=== PATIENT | female | born 1965 | race Caucasian/White ===

== ENCOUNTER 2017-02-08 22:33 | Emergency (ER) | payer BC ==
[~2017-02-08] VITALS: Ht 167.6 cm; Wt 100.5 kg
[2017-02-08 22:36] VITALS: Ht 167.6 cm; Wt 100.5 kg
[2017-02-09] MEDS ORDERED: ALBUTEROL 0.083% (NEB) 2.5 MG/3 ML AMP NEB STA (00:40)
[2017-02-09] MEDS ORDERED: IPRATROPIUM (NEB) 0.5 MG/2.5 ML AMP HHN ONE (01:00)
[2017-02-09 01:19] LABS: ADD SCAN DIFF NO
[2017-02-09 01:26] LABS: BASOPHILS % 0.4 % (0.0-2.0); EOSINOPHILS # 0.1 10^3/ul (0.0-0.5); EOSINOPHILS % 1.9 % (0.0-7.0); HEMATOCRIT 41.2 % (37.0-47.0); HEMOGLOBIN 13.6 g/dl (12.0-16.0); LYMPHOCYTES # 1.7 10^3/ul (0.8-2.9); LYMPHOCYTES % 24.4 % (15.0-51.0); MEAN CORPUSCULAR HEMOGLOBIN 31.1 pg (29.0-33.0); MEAN CORPUSCULAR VOLUME 94.1 fl (82.0-101.0); MEAN PLATELET VOLUME 9.2 fl (7.4-10.4); MONOCYTE # 0.6 10^3/ul (0.3-0.9); MONOCYTES % 8.6 % (0.0-11.0); NEUTROPHIL # 4.5 10^3/ul (1.6-7.5); NEUTROPHILS % 64.3 % (39.0-77.0); PLATELET COUNT 388 10^3/UL (140-415); RED BLOOD COUNT 4.38 10^6/ul (4.20-5.40); RED CELL DISTRIBUTION WIDTH 12.7 % (11.5-14.5)
[2017-02-09 01:39] LABS: CALCIUM 9.4 mg/dl (8.4-10.2); CREATININE 0.67 mg/dl (0.44-1.00); POTASSIUM 4.1 mmol/L (3.5-5.1)
[2017-02-09] MEDS ORDERED: predniSONE 20 MG TAB PO ONE (02:30)
--- NOTE | 2017-02-09 03:45 | RADRPT ---
PROCEDURE: XR Chest. CLINICAL INDICATION: Pneumonia TECHNIQUE: PA and Lateral views of the chest were obtained. COMPARISON: None. FINDINGS: The cardiomediastinal silhouette is within normal limits. There is minimal prominence of the lung in terstitium which could represent minimal chronic changes. Minimal interstitial infiltrates in lower lungs are possible. No focal lung consolidation is seen. No signs of pleural fluid or pneumothorax are seen. There is moderate to marked dextroscoliosis of the lower thoracic spine. Spinal rods exten ding from the level of T1 superiorly to the lumbar spine. IMPRESSION: There is minimal prominence of the lung interstitium which could represent minimal chronic changes. Minimal interstitial infiltrates in lower lungs are possible. Please see above. RPTAT: HJES .Elijah Barbosa MD, Date Time Electronically viewed and signed by .Elijah Barbosa MD, on 02/09/2017 03:45 .S/
[2017-02-09] MEDS ORDERED: ALBUTEROL 0.083% (NEB) 2.5 MG/3 ML AMP HHN STA (03:46)
--- NOTE | 2017-02-09 04:01 | ERD ---
ER Documentation Chief Complaint Date/Time DATE: 02/09/17 TIME: 03:50 Chief Complaint cough x 3 weeks, completed levaquine at home HPI This 51-year-old female presents to emergency department for cough, fatigue, and weakness 3 weeks. Patient reports that she has been seen and treated on January 29 for pneumonia with Levaquin 750 mg 1 tab p.o. once a day 5 days. Patient reports that she never fully felt improvement on medication. Has continued to cough. Was prescribed Tessalon Perles with little relief of symptoms. Patient reports she is coughing so hard that her back in her stomach hurts now. She reports shortness of breath, chest wall tenderness. Patient denies dizziness, fever, or sputum production. History of asthma as a child but has been prescribed an inhaler recently with little relief of symptoms. Patient reports she is frustrated, and wants to feel better. Patient denies smoking, history of COPD, any hemoptysis, or night sweats, or unintentional weight loss. ROS All systems reviewed and are negative except as per history of present illness. Medications Home Meds Active Scripts Prednisone* (Prednisone*) 20 Mg Tab, 40 MG PO DAILY for 4 Days, TAB Prov:MARIBELL,TAMI 02/09/17 Inhaler, Assist Devices (E-Z SPACER) 1 Each Spacer, 1 EACH MC, #1 Prov:MARIBELL,TAMI 02/09/17 Albuterol Sulfate* (Ventolin HFA*) 18 Gm Hfa.aer.ad, 2 PUFF INHALATION Q4H, #1 INHALER Prov:MARIBELL,TAMI 02/09/17 Promethazine/Phenyleph/Codeine (Zjmhjdohffvq-MU-Evlysdq Syrup) 118 Ml Syrup, 5 ML PO Q4 for COUGH, #100 Prov:MARIBELL,TAMI 02/09/17 Azithromycin* (Zithromax*) 250 Mg Tablet, 250 MG PO .ZPACK DIRECTED, #6 TAB TAKE 500 MG (2 TABS) THE FIRST DAY THEN 250 MG (1 TAB) DAYS 2-5 Prov:MARIBELL,TAMI 02/09/17 Allergies Allergies: Coded Allergies: No Known Allergy (Unverified , 02/08/17) PMhx/Soc History of Surgery: No Anesthesia Reaction: No Hx Neurological Disorder: No Hx Respiratory Disorders: Yes (PNA) Hx Cardiac Disorders: No Hx Psychiatric Problems: No Hx Miscellaneous Medical Probl: No Hx Alcohol Use: No Hx Substance Use: No Hx Tobacco Use: No Smoking Status: Never smoker Physical Exam Vitals Vitals stable, triage notes reviewed Physical Exam Const: Coughing, no acute distress Head: Atraumatic Eyes: Normal Conjunctiva PERRLA, EOMI ENT: Normal External Ears, Nose and Mouth. Neck: Resp: Expiratory wheeze, dry cough diminished bases Cardio: Abd: Skin: Back: Ext: Neur: Awake and alert Psych: Normal Mood and Affect Results 24 hrs Laboratory Tests Test 02/09/17 00:58 White Blood Count 7.010^3/ul Red Blood Count 4.3810^6/ul Hemoglobin 13.6g/dl Hematocrit 41.2% Mean Corpuscular Volume 94.1fl Mean Corpuscular Hemoglobin 31.1pg Mean Corpuscular Hemoglobin Concent 33.0g/dl Red Cell Distribution Width 12.7% Platelet Count 83182^3/UL Mean Platelet Volume 9.2fl Neutrophils % 64.3% Lymphocytes % 24.4% Monocytes % 8.6% Eosinophils % 1.9% Basophils % 0.4% Nucleated Red Blood Cells % 0.0/100WBC Neutrophils # 4.510^3/ul Lymphocytes # 1.710^3/ul Monocytes # 0.610^3/ul Eosinophils # 0.110^3/ul Basophils # 0.010^3/ul Nucleated Red Blood Cells # 0.010^3/ul Sodium Level 140mmol/L Potassium Level 4.1mmol/L Chloride Level 103mmol/L Carbon Dioxide Level 27mmol/L Anion Gap 14 Blood Urea Nitrogen 8mg/dl Creatinine 0.67mg/dl Glucose Level 97mg/dl Calcium Level 9.4mg/dl Current Medications Medications (Trade) Dose Ordered Sig/Hayes Route PRN Reason Start Time Stop Time Status Last Admin Dose Admin Albuterol (Proventil 0.083% (Neb)) 5 mg ONCE STAT NEB 02/09/17 00:40 02/09/17 00:47 DC 02/09/17 01:07 Ipratropium [place] (Atrovent 0.02% (Neb)) 0.5 mg ONCE ONCE HHN 02/09/17 01:00 02/09/17 01:01 DC 02/09/17 01:07 Prednisone (Prednisone) 60 mg ONCE ONCE PO 02/09/17 02:30 02/09/17 02:31 DC 02/09/17 02:16 Albuterol (Proventil 0.083% (Neb)) 5 mg ONCE STAT HHN 02/09/17 03:46 02/09/17 03:49 DC 02/09/17 04:20 Interpretation text CBC shows no evidence of hemorrhage or infection Chemistry shows no evidence of significant electrolyte abnormalities or renal insufficiency Procedures/MDM This 51-year-old female presents to emergency department today with cough fatigue and weakness 3 weeks. Patient is status post treatment for pneumonia with Levaquin, Tessalon Perles, albuterol inhaler. Patient denies any improvement of symptoms. Denies fever, difficulty eating, patient reports chest wall tenderness and abdominal pain secondary to coughing, denies hemoptysis. Patient is frustrated, active listening maintained. Patient receives albuterol, Atrovent hand-held nebulized treatment, 60 mg of oral prednisone and reassess. Patient wheezing has improved but continues, scattered nonclearing rhonchi, additional albuterol treatment initiated. Tuberculosis, chronic bronchitis, asthma exacerbation, lung mass unlikely. Pneumonia with treatment failure suspected. Bronchitis likely. Chest x-ray findings; the cardiomediastinal silhouette is within normal limits. There is minimal prominence of the lung interstitium which could represent minimal chronic changes. Minimal interstitial infiltrates in lower lungs are possible. No local lung consolidation is seen. No sign of pleural fluid or pneumothorax is seen. There is moderate to mild dextroscoliosis of the lower thorax spine. Spinal rods extending from level T1 superiorly to the lumbar spine. Patient verbalizes minimal improvement after second albuterol dose. She is tolerating fluid, with with increased air movement auscultated. Patient will be discharged home with azithromycin, albuterol, prednisone 404 days. Promethazine with codeine. Instructed to follow-up with primary care physician , return to emergency department for shortness of breath, chest pain, dizziness , or symptoms not improving as expected. I feel the patient is stable for discharge at this time. I have discussed results, examination findings, the treatment plan with the patient and family present prior to discharge. Indications for emergent reevaluation, side effects of medication were also discussed. All questions were answered. Patient verbalizes understanding and agrees with plan of care. Departure Diagnosis: Primary Impression: Lung infiltrate Additional Impression: Cough Condition: Good Patient Instructions: Pneumonia (Adult), Treating Pneumonia, What Is Pneumonia? Additional Instructions: Thank you for for coming to [facility] for your care today. Please ask your nurse or provider if you have questions about your care today and do not leave until all your questions have been answered. Please use any medications given as directed and follow-up with your doctor (or the doctor you were referred to) in the next 2-3 days. If you do not have a primary care doctor you may follow up at the [facility] [place] [facility] (listed below). You may also use motrin and tylenol as needed for fever and/or pain unless instructed otherwise by your provider or nurse. Indications for more urgent follow-up have been discussed, but you may return to the Emergency Department at ANY time for any worrisome or worsening symptoms. If you have abdominal pain, please know that no test or exam you received is perfect and you should follow up within 8 hours for continued pain. If you had any imaging studies today, such as an X-Ray or CT Scan, these studies will be reviewed later by a radiologist. You will be called if there are important findings that were not identified today, so make sure the contact information you provided at registration is correct. If you received any narcotic pain control medicine today, such as Vicodin, Morphine or Dilaudid, your coordination and judgment may be affected for a number of hours. Please do not drive or operate heavy machinery, and you may want someone to assist you at home. If you were given a prescription for narcotic medication, be aware that it is very addictive- use sparingly and only if necessary. TAMI REYNA Feb 09, 2017 04:01 are important findings that were not identified today, so make sure the contact information you provided at registration is correct. If you received any narcotic pain control medicine today, such as Vicodin, Morphine or Dilaudid, your coordination and judgment may be affected for a number of hours. Please do not drive or operate heavy machinery, and you may want someone to assist you at home. If you were given a prescription for narcotic medication, be aware that it is very addictive- use sparingly and only if necessary. TAMI REYNA Feb 09, 2017 04:01
[2017-02-09] MEDS ORDERED: AZIT250T94 PO (04:02)
[2017-02-09] MEDS ORDERED: INHA1SPA53 MC (04:06)
[2017-02-09] MEDS ORDERED: ALBU18HF INHALATION (04:06)
[2017-02-09] MEDS ORDERED: PROM118S PO (04:06)
[2017-02-09] MEDS ORDERED: PRED20TA PO (04:07)
[2017-02-09 04:33] VITALS: BP 134/56; PULSE 96; RESP 20; TEMP 98.2
== END 2017-02-09 04:38 | disposition home or self-care (01) ==
LOC: FTE 22:33
DX: R91.8 Other nonspecific abnormal finding of lung field (principal)
CPT/HCPCS: 71020; 80048; 85025; 94640; 94664; J7512; 36415